=== PATIENT | female | born 1960 | race African-American/Black ===

== ENCOUNTER 2019-01-17 09:00 | Emergency (ER) | payer SELFPAY ==
[~2019-01-17] VITALS: Ht 165.1 cm; Wt 68.0 kg
[2019-01-17] MEDS ORDERED: METOCLOPRAMIDE HCL 10MG/2ML VIAL IV ONE (11:45)
[2019-01-17] MEDS ORDERED: KETOROLAC 30MG/ML VIAL IV ONE (11:45)
[2019-01-17] MEDS ORDERED: SODIUM CHLORIDE 0.9% 500 ML IV ONE (11:49)
[2019-01-17 13:47] VITALS: BP 124/78
== END 2019-01-17 13:47 | disposition home or self-care (01) ==
LOC: ER 09:00
DX: G43.909 Migraine, unspecified, not intractable, without status migrainosus (principal)
CPT/HCPCS: 70450; 96374; 96375; 99284; J1885; J2765; J7040; Z7610